=== PATIENT | male | born 1980 | race African-American/Black ===

== ENCOUNTER 2018-02-01 22:19 | Emergency (ER) | payer MEDICAID ==
[~2018-02-01] VITALS: Ht 182.9 cm; Wt 68.5 kg
[~2018-02-01 22:19] MED LIST: GABA300C10 PO; TRAM100T13 PO
[2018-02-01 22:29] VITALS: BP 117/75
[2018-02-01] MEDS ORDERED: HYDROcodone/APAP 5/325 TABLET ONE (22:49)
[2018-02-01] MEDS ORDERED: HYDROcodone/APAP 5/325 TABLET PO ONE (23:00)
== END 2018-02-01 22:53 | disposition home or self-care (01) ==
LOC: ED 22:47
DX: K02.9 Dental caries, unspecified (principal); S02.5XXA Fracture of tooth (traumatic), initial encounter for closed fracture; X58.XXXA Exposure to other specified factors, initial encounter; Y93.89 Activity, other specified; Y99.8 Other external cause status; Y92.89 Other specified places as the place of occurrence of the external cause
CPT/HCPCS: 99283

== ENCOUNTER 2018-06-27 19:17 | Emergency (ER) | payer MEDICAID ==
[~2018-06-27] VITALS: Ht 182.9 cm; Wt 77.0 kg
[2018-06-27 19:20] VITALS: BP 133/90
[2018-06-27] MEDS ORDERED: IBUPROFEN 200 MG TABLET PO ONE (20:00)
[2018-06-27] MEDS ORDERED: IBUPROFEN 600 MG TABLET ONE (20:02)
== END 2018-06-27 20:37 | disposition home or self-care (01) ==
LOC: ED 20:31
DX: K08.89 Other specified disorders of teeth and supporting structures (principal); F17.210 Nicotine dependence, cigarettes, uncomplicated
CPT/HCPCS: 99283

== ENCOUNTER 2018-07-21 08:44 | Emergency (ER) | payer MEDICAID ==
[~2018-07-21] VITALS: Ht 182.9 cm; Wt 74.1 kg
[2018-07-21 09:50] LABS: BASOPHILS % (AUTO) 0 % (0-1); EOSINOPHILS # (AUTO) 0.09 x10^3/uL (0-0.4); EOSINOPHILS % (AUTO) 1 % (1-7); LYMPHOCYTES # (AUTO) 0.71 x10^3/uL (1-3.4); LYMPHOCYTES % (AUTO) 7 % (22-44); MD NO; MEAN CORPUSCULAR HEMOGLOBIN 28.9 pg (27.5-34.5); MEAN CORPUSCULAR HGB CONC 32.8 g/dL (33.2-36.2); MEAN CORPUSCULAR VOLUME 88.1 fL (81-97); MEAN PLATELET VOLUME 8.6 fL (7.4-10.4); MONOCYTES % (AUTO) 6 % (2-9); NEUTROPHILS # (AUTO) 8.59 x10^3/uL (1.8-6.8); NEUTROPHILS % (AUTO) 86 % (42-75); PLATELET COUNT 219 x10^3/uL (130-400); RED BLOOD COUNT 5.38 x10^6/uL (4.38-5.82)
[2018-07-21 09:59] LABS: ALBUMIN 4.1 g/dL (3.4-5.0); ANION GAP 5 mmol/L (5-15); CALCIUM 8.8 mg/dL (8.5-10.1); CHLORIDE 105 mmol/L (98-107)
[2018-07-21 10:04] LABS: ALANINE AMINOTRANSFERASE 36 U/L (12-78); ALKALINE PHOSPHATASE 71 U/L (45-117); BILIRUBIN,TOTAL 0.3 mg/dL (0.2-1.0); CREATININE 1.13 mg/dL (0.7-1.3)
--- NOTE | 2018-07-21 13:41 | NUR ---
ABD PAIN, DIARRHEA AND STOOL INCONTINENCE X 2 DAYS. PT ATE SUSPICIOUS FOOD YESTERDAY. PER TRIAGE NOTE PT STATED PT HAD METH 3 DAYS AGO HOMELESS
[2018-07-21] MEDS ORDERED: BACITRACIN OINT 500U/GM, 15 GM TP ONE (14:00)
[2018-07-21] MEDS ORDERED: DICYCLOMINE 10 MG/ML, 2ML IM ONE (14:00)
[2018-07-21] MEDS ORDERED: ONDANSETRON ODT 4 MG PO ONE (14:00)
--- NOTE | 2018-07-21 14:42 | NUR ---
GIVEN MED PT CAN DC NOW GIVEN CLEAN CLOTHES FOR CHANGING
--- NOTE | 2018-07-21 15:01 | NUR ---
GIVEN TOPICAL ABX AND CHANGED DRESSING PT UP CHANGED CLOTHES WHICH I GAVE TO HIM PT UP AMBULATED TO CHECK OUT
[2018-07-21 15:02] VITALS: BP 116/74
== END 2018-07-21 15:04 | disposition home or self-care (01) ==
LOC: ED 13:30
DX: R19.7 Diarrhea, unspecified (principal); R10.84 Generalized abdominal pain; F41.1 Generalized anxiety disorder
CPT/HCPCS: 36415; 74021; 80053; 83690; 85025; 96372; 99284; J0500; Q0162

== ENCOUNTER 2018-09-16 01:45 | Emergency (ER) | payer MEDICAID ==
[~2018-09-16] VITALS: Ht 182.9 cm; Wt 72.7 kg
--- NOTE | 2018-09-16 01:48 | NUR ---
pt not in lobby x1
[2018-09-16 01:54] VITALS: BP 127/79
[2018-09-16] MEDS ORDERED: IBUPROFEN 600 MG TABLET ONE (02:11)
--- NOTE | 2018-09-16 02:16 | NUR ---
PT GIVEN SOCKS AND MEDICATED PER SEP.
[2018-09-16] MEDS ORDERED: IBUPROFEN 600 MG TABLET PO ONE (02:30)
== END 2018-09-16 03:34 | disposition home or self-care (01) ==
LOC: ED 02:23
DX: M79.671 Pain in right foot (principal); M79.672 Pain in left foot
CPT/HCPCS: 99282

== ENCOUNTER 2019-06-14 21:41 | Emergency (ER) ==
[~2019-06-14] VITALS: Ht 182.9 cm; Wt 72.7 kg
[2019-06-14 21:52] VITALS: BP 122/77
[2019-06-14] MEDS ORDERED: KETOROLAC 30 MG/1 ML ONE (22:10)
--- NOTE | 2019-06-14 22:14 | NUR ---
L hip pain x1 week, atraumatic, walking a lot. pt to xr. plan for toradol.
[2019-06-14] MEDS ORDERED: KETOROLAC 30 MG/1 ML IM ONE (22:30)
== END 2019-06-14 23:03 | disposition home or self-care (01) ==
LOC: ED 22:45
DX: M25.552 Pain in left hip (principal)
CPT/HCPCS: 73502; 96372; 99283; J1885

== ENCOUNTER 2019-08-24 02:54 | Emergency (ER) | payer MEDICAID ==
[2019-08-24] MEDS ORDERED: IBUPROFEN 600 MG TABLET ONE (03:23)
[2019-08-24] MEDS ORDERED: ACETAMINOPHEN 500 MG TABLET ONE (03:23)
[2019-08-24] MEDS ORDERED: NEOSPORIN OINT. PKT 1 PACKET ONE (03:23)
--- NOTE | 2019-08-24 04:05 | NUR ---
see paper chart
== END 2019-08-24 04:06 | disposition home or self-care (01) ==
LOC: ED 02:54
DX: M25.561 Pain in right knee (principal); F17.200 Nicotine dependence, unspecified, uncomplicated
CPT/HCPCS: 99283

== ENCOUNTER 2019-08-29 02:22 | Emergency (ER) | payer MEDICAID ==
[~2019-08-29] VITALS: Ht 182.9 cm; Wt 68.1 kg
[2019-08-29 02:47] LABS: MEAN CORPUSCULAR HEMOGLOBIN 28.2 pg (27.5-34.5); MEAN CORPUSCULAR HGB CONC 32.7 g/dL (33.2-36.2); MEAN CORPUSCULAR VOLUME 86.1 fL (81-97); MEAN PLATELET VOLUME 7.6 fL (7.4-10.4); PLATELET COUNT 261 x10^3/uL (130-400); RED BLOOD COUNT 5.28 x10^6/uL (4.38-5.82); RED CELL DISTRIBUTION WIDTH 15.3 % (9.4-14.8)
[2019-08-29 02:54] LABS: ALANINE AMINOTRANSFERASE 36 U/L (12-78); ALBUMIN 3.4 g/dL (3.4-5.0); ANION GAP 5 mmol/L (5-15); CALCIUM 8.5 mg/dL (8.5-10.1); CHLORIDE 107 mmol/L (98-107); CREATININE 1.21 mg/dL (0.7-1.3)
[2019-08-29 02:56] LABS: ALKALINE PHOSPHATASE 72 U/L (45-117); BILIRUBIN,TOTAL 0.2 mg/dL (0.2-1.0); TOTAL PROTEIN 8.1 g/dL (6.4-8.2)
[2019-08-29 03:18] LABS: BASOPHILS # (AUTO) 0.01 x10^3/uL (0-0.1); BASOPHILS % (AUTO) 0 % (0-1); EOSINOPHILS # (AUTO) 0.11 x10^3/uL (0-0.4); EOSINOPHILS % (AUTO) 2 % (1-7); LYMPHOCYTES # (AUTO) 1.37 x10^3/uL (1-3.4); LYMPHOCYTES % (AUTO) 22 % (22-44); MD SCAN; MONOCYTES # (AUTO) 0.59 x10^3/uL (0.2-0.8); MONOCYTES % (AUTO) 10 % (2-9); NEUTROPHILS # (AUTO) 4.11 x10^3/uL (1.8-6.8); NEUTROPHILS % (AUTO) 66 % (42-75)
--- NOTE | 2019-08-29 03:23 | NUR ---
Pt up to restroom for urine sample.
--- NOTE | 2019-08-29 03:31 | NUR ---
Urine sample obtained, sent to lab
[2019-08-29 03:43] LABS: CULTURE INDICATED? NO; MICROSCOPIC NOT IND
[2019-08-29 04:20] VITALS: BP 105/67
== END 2019-08-29 04:23 | disposition home or self-care (01) ==
LOC: ED 03:43
DX: K52.9 Noninfective gastroenteritis and colitis, unspecified (principal); F17.200 Nicotine dependence, unspecified, uncomplicated
CPT/HCPCS: 36415; 74021; 80053; 81003; 83690; 85025; 99284

== ENCOUNTER 2019-08-29 18:26 | Emergency (ER) | payer MEDICAID ==
[~2019-08-29] VITALS: Ht 182.9 cm; Wt 65.0 kg
--- NOTE | 2019-08-29 19:20 | NUR ---
pt to room from lobby
--- NOTE | 2019-08-29 19:25 | NUR ---
LAB AT BEDSIDE
--- NOTE | 2019-08-29 19:33 | NUR ---
PT AGITATED AND NOT WANTING TO PUT HOSPTIAL GOWN ON. PT ALSO EDUCATED ON THE NEED FOR A URINE SAMPLE, THEN PT STATED "I JUST GAVE ONE THIS MORNING, I WENT TO PEE BEFORE I GOT HERE. I DON'T HAVE TO GO NOW". PT PROVIDED WITH UA CUP AND ENCOURAGED TO ATTEMPT TO PROVIDE A URINE SAMPLE. AMBULATORY TO RESTROOM WITH STEADY GAIT.
--- NOTE | 2019-08-29 19:41 | NUR ---
URINE SAMPLE PROVIDED. LABELED AND SENT TO LAB. MONITORING EQUIPMENT APPLIED. AWAITING PHYSICIAN EVAL AT THIS TIME.
[2019-08-29 19:44] LABS: ALANINE AMINOTRANSFERASE 35 U/L (12-78); ALBUMIN 3.5 g/dL (3.4-5.0); ANION GAP 4 mmol/L (5-15); CALCIUM 8.6 mg/dL (8.5-10.1); CHLORIDE 106 mmol/L (98-107); CREATININE 1.06 mg/dL (0.7-1.3)
[2019-08-29 19:46] LABS: ALKALINE PHOSPHATASE 62 U/L (45-117); BILIRUBIN,TOTAL 0.2 mg/dL (0.2-1.0); TOTAL PROTEIN 8.2 g/dL (6.4-8.2)
[2019-08-29 19:49] LABS: BASOPHILS # (AUTO) 0.02 x10^3/uL (0-0.1); BASOPHILS % (AUTO) 0 % (0-1); EOSINOPHILS # (AUTO) 0.11 x10^3/uL (0-0.4); EOSINOPHILS % (AUTO) 2 % (1-7); LYMPHOCYTES # (AUTO) 1.21 x10^3/uL (1-3.4); LYMPHOCYTES % (AUTO) 18 % (22-44); MD NO; MEAN CORPUSCULAR HEMOGLOBIN 28.4 pg (27.5-34.5); MEAN CORPUSCULAR HGB CONC 32.6 g/dL (33.2-36.2); MEAN CORPUSCULAR VOLUME 87.2 fL (81-97); MEAN PLATELET VOLUME 7.8 fL (7.4-10.4); MONOCYTES # (AUTO) 0.57 x10^3/uL (0.2-0.8); MONOCYTES % (AUTO) 8 % (2-9); NEUTROPHILS # (AUTO) 4.87 x10^3/uL (1.8-6.8); NEUTROPHILS % (AUTO) 72 % (42-75); PLATELET COUNT 277 x10^3/uL (130-400); RED BLOOD COUNT 5.35 x10^6/uL (4.38-5.82)
[2019-08-29 19:58] LABS: MICROSCOPIC NOT IND
[2019-08-29 20:03] LABS: CULTURE INDICATED? NO
--- NOTE | 2019-08-29 20:48 | NUR ---
IV ESTABLISHED IN LEFT AC FOR CT SCAN. PT RESTING ON GURNEY WITH EYES CLOSED. PT TOLD HE WILL BE GOING FOR A CT. PT STILL HAS NOT CHANGED INTO A GOWN. PT EDUCATED ON THE NEED TO CHANGE INTO A GOWN FOR FURTHER TESTING. PT VERBALIZES UNDERSTANDING
[2019-08-29] MEDS ORDERED: OMNIPAQUE 350 MG/ML, 100ML BOTTLE ONE (21:30)
--- NOTE | 2019-08-29 21:59 | NUR ---
PT SLEEPING ON GURNEY, RESPIRATIONS EVEN AND UNLABORED. VITALS STABLE. AWAITING DISPO FROM ERP. WILL CONTINUE TO MONITOR
[2019-08-29 22:00] VITALS: BP 118/74
--- NOTE | 2019-08-29 22:23 | NUR ---
DISCUSSED DISCHARGE PAPERWORK WITH PT, PT HAS EYES CLOSED. PT ASKED IF HE WAS LISTENING AND RESPONDED WITH "YES", PT CONTINUES TO LIE ON GURNEY WITH EYES CLOSED AND DOES NOT PARTICIPATE IN DISCHARGE EDUCATION. IV DC'D AND PT ASKED TO GET DRESSED.
== END 2019-08-29 22:43 ==
LOC: ED 22:37
DX: R10.84 Generalized abdominal pain (principal); R19.7 Diarrhea, unspecified; F17.200 Nicotine dependence, unspecified, uncomplicated; R94.31 Abnormal electrocardiogram [ECG] [EKG]
CPT/HCPCS: 36415; 74177; 80053; 81003; 83690; 85025; 93005; 99285; Q9967

== ENCOUNTER 2020-03-14 17:20 | Emergency (ER) | payer MEDICAID ==
[~2020-03-14] VITALS: Ht 182.9 cm; Wt 68.3 kg
[2020-03-14 17:25] VITALS: BP 118/71
--- NOTE | 2020-03-14 18:05 | NUR ---
HEEL STIFFENER: PT TO ROOM FROM LOBBY
[2020-03-14] MEDS ORDERED: IBUPROFEN 600 MG TABLET PO ONE (18:30)
[2020-03-14] MEDS ORDERED: IBUPROFEN 600 MG TABLET ONE (18:38)
== END 2020-03-14 18:51 | disposition home or self-care (01) ==
LOC: ED 18:23
DX: M79.672 Pain in left foot (principal); B35.3 Tinea pedis; Z72.9 Problem related to lifestyle, unspecified
CPT/HCPCS: 99282

== ENCOUNTER 2020-06-02 18:38 | Emergency (ER) | payer MEDICAID ==
[~2020-06-02] VITALS: Ht 182.9 cm; Wt 72.0 kg
[2020-06-02 18:58] VITALS: BP 126/77
--- NOTE | 2020-06-02 19:50 | NUR ---
not in lobby
--- NOTE | 2020-06-02 20:11 | NUR ---
not in lobby
--- NOTE | 2020-06-02 20:41 | NUR ---
not in lobby
== END 2020-06-02 20:44 | disposition left against medical advice (07) ==
LOC: ED 18:45
DX: R52 Pain, unspecified (principal); Z53.21 Procedure and treatment not carried out due to patient leaving prior to being seen by health care provider

== ENCOUNTER 2020-06-04 22:36 | Emergency (ER) | payer MEDICAID ==
[~2020-06-04] VITALS: Ht 182.9 cm; Wt 70.8 kg
--- NOTE | 2020-06-05 00:02 | NUR ---
PT REFUSING LAB DRAW AT THIS TIME -JODI
--- NOTE | 2020-06-05 01:41 | NUR ---
PT RESTING ON GURNEY, WATCHING TV, STATES "I CAME IN FOR THESE LACERATIONS ON MY HAND". PT HAS ON 2 CM CUT NOTED ON RIGHT HAND. APPEARS TO BE SHALLOW. PT NAD, DENIES ADDITIONAL QUESTIONS OR NEEDS, BED IN LOWEST, CALL LIGHT ON LAP, WCTM. WAITING FOR ADDITIONAL ORDERS
--- NOTE | 2020-06-05 01:49 | NUR ---
PATIENT STILL REFUSING LABS.
[2020-06-05 02:52] VITALS: BP 109/59
--- NOTE | 2020-06-05 03:04 | NUR ---
Patient given discharge instructions and they have confirmed that they understand the instructions. Patient ambulatory with steady gait. NAD, DENIES ADDITIONAL QUESTIONS OR NEEDS AT THIS TIME. PROVIDED WATER BOTTLE PER REQUEST, NO PERSONAL BELONGINGS NOTED IN ROOM AT TIME OF DC.
== END 2020-06-05 03:05 | disposition home or self-care (01) ==
LOC: ED 06-05 01:31
DX: L20.84 Intrinsic (allergic) eczema (principal); R00.0 Tachycardia, unspecified; F17.210 Nicotine dependence, cigarettes, uncomplicated; Z59.0 Homelessness
CPT/HCPCS: 99283; 99406

== ENCOUNTER 2020-06-12 20:46 | Emergency (ER) | payer MEDICAID ==
[~2020-06-12] VITALS: Ht 182.9 cm; Wt 70.2 kg
[2020-06-12 20:49] VITALS: BP 127/80
[2020-06-12] MEDS ORDERED: IBUPROFEN 600 MG TABLET ONE (20:57)
[2020-06-12] MEDS ORDERED: IBUPROFEN 600 MG TABLET PO ONE (21:00)
== END 2020-06-12 21:11 | disposition home or self-care (01) ==
LOC: ED 21:00
DX: M79.671 Pain in right foot (principal); F17.210 Nicotine dependence, cigarettes, uncomplicated; F15.10 Other stimulant abuse, uncomplicated; Z72.9 Problem related to lifestyle, unspecified
CPT/HCPCS: 99282; 99406

== ENCOUNTER 2020-09-13 10:06 | Emergency (ER) | payer MEDICAID ==
[~2020-09-13] VITALS: Ht 182.9 cm; Wt 65.0 kg
--- NOTE | 2020-09-13 10:21 | NUR ---
BIB BY JESS FROM ALLEY WHERE PATIENT NOTED TO BE STUMBLING AROUND. FOUND TO HAVE LACERATION TO BACK OF HEAD HR 120'S, FSBS 124 PATIEN IN AND OUT OF CONVERSATION-RESPONDING TO EXTERNAL STIMULI? UNKNOWN LAST TDAP PLACED ON HOSPITAL LIAISON ECG OBTAINED ERP TO BEDSIDE-PLAN FOR BLOOD [id number] REPAIR
[2020-09-13] MEDS ORDERED: DIPH,PERTUSS(ACELL),TET VAC/PF 0.5 ML IM-VACC ONE ×2 (10:30→10:32)
[2020-09-13] MEDS ORDERED: LIDOCAINE-MPF 1%, 5ML INFIL ONE (10:30)
[2020-09-13] MEDS ORDERED: LIDOCAINE-MPF 1%, 5ML ONE (10:31)
--- NOTE | 2020-09-13 10:44 | NUR ---
LAB AT BEDSIDE TDAP UPDATED PER EMAR WOUND IRRIGATED PROVIDED WITH FOOD/WATER
[2020-09-13 10:52] LABS: BASOPHILS % (AUTO) 0 % (0-1); EOSINOPHILS % (AUTO) 0 % (1-7); LYMPHOCYTES % (AUTO) 9 % (22-44); MD NO; MEAN CORPUSCULAR HEMOGLOBIN 28.6 pg (27.5-34.5); MEAN CORPUSCULAR HGB CONC 33.7 g/dL (33.2-36.2); MEAN PLATELET VOLUME 8.5 fL (7.4-10.4); MONOCYTES % (AUTO) 9 % (2-9); NEUTROPHILS % (AUTO) 82 % (42-75); PLATELET COUNT 193 x10^3/uL (130-400); RED BLOOD COUNT 4.61 x10^6/uL (4.38-5.82); RED CELL DISTRIBUTION WIDTH 14.4 % (9.4-14.8)
[2020-09-13 11:03] LABS: ALBUMIN 4.6 g/dL (3.4-5.0); ANION GAP 9 mmol/L (5-15); CALCIUM 9.7 mg/dL (8.5-10.1); CHLORIDE 107 mmol/L (98-107); CREATININE 1.47 mg/dL (0.7-1.3)
--- NOTE | 2020-09-13 11:09 | NUR ---
6 URBAN PLACED TO 2 SEPERATE LACERATIONS (4 IN ONE LAC, 2 IN THE OTHER LAC) BY PROVIDER
[2020-09-13 11:28] VITALS: BP 132/76
--- NOTE | 2020-09-13 11:29 | NUR ---
report recived. pt laying in bed vss. suni done at bedside.
--- NOTE | 2020-09-13 12:16 | NUR ---
PT WALKED OUT SELF WITH STEADY GAIT. DISCUESSED URBAN, COMMUNITY RESOURCES, AND S&S OF INFECTION.
== END 2020-09-13 12:27 | disposition home or self-care (01) ==
LOC: ED 11:44
DX: S01.01XA Laceration without foreign body of scalp, initial encounter (principal); R00.0 Tachycardia, unspecified; I49.3 Ventricular premature depolarization; W01.0XXA Fall on same level from slipping, tripping and stumbling without subsequent striking against object, initial encounter; Y93.89 Activity, other specified; Y92.488 Other paved roadways as the place of occurrence of the external cause; Y99.8 Other external cause status
CPT/HCPCS: 12002; 36415; 80048; 80320; 82040; 85025; 90471; 90715; 93005; 99284; G0480

== ENCOUNTER 2020-09-14 02:18 | Emergency (ER) | payer MEDICAID ==
[~2020-09-14] VITALS: Ht 182.9 cm; Wt 69.6 kg
[2020-09-14 02:19] VITALS: BP 138/90
[2020-09-14] MEDS ORDERED: IBUPROFEN 800 MG TABLET PO ONE (03:00)
[2020-09-14] MEDS ORDERED: IBUPROFEN 200 MG TABLET ONE (03:04)
--- NOTE | 2020-09-14 03:17 | NUR ---
Pt to ER for motrin, and gauze for head. Pt had fall x 1 day ago and had suni placed. Head wound intact, no s/s of infection, no bleeding. Pt A&O, neuro intact. Pt medicated per order. Given water, sprite, crackers and gauze for head. Pt dc'd with written and verabal instructions and states understanding. Pt ambulatory out of ed without difficulty.
== END 2020-09-14 03:20 | disposition home or self-care (01) ==
LOC: ED 03:01
DX: G89.11 Acute pain due to trauma (principal); R51.9 Headache, unspecified; F17.210 Nicotine dependence, cigarettes, uncomplicated; Z72.9 Problem related to lifestyle, unspecified
CPT/HCPCS: 99282; 99406

== ENCOUNTER 2021-01-01 00:05 | Emergency (ER) | payer MEDICAID ==
[~2021-01-01] VITALS: Ht 182.9 cm; Wt 77.3 kg
--- NOTE | 2021-01-01 03:24 | NUR ---
pt to room from lobby
[2021-01-01] MEDS ORDERED: ACETAMINOPHEN 325 MG TABLET PO ONE (04:00)
[2021-01-01] MEDS ORDERED: IBUPROFEN 600 MG TABLET PO ONE (04:00)
[2021-01-01] MEDS ORDERED: IBUPROFEN 600 MG TABLET ONE (04:36)
[2021-01-01] MEDS ORDERED: ACETAMINOPHEN 325 MG TABLET ONE (04:36)
--- NOTE | 2021-01-01 04:40 | NUR ---
Patient is resting comfortably in bed. Bed in lowest, rails engaged, call light on lap. Vital Signs within normal limits. WCTM.
[2021-01-01 06:24] VITALS: BP 106/63
--- NOTE | 2021-01-01 06:26 | NUR ---
Patient/Caregiver given discharge instructions and they have confirmed that they understand the instructions. Patient ambulatory with steady gait. NAD, all questions answered appropriately, denies additional needs at this time. No personal belongings left in room after discharge. pt given non slip socks. pt educated on MTM for transport to disposition of dc.
== END 2021-01-01 06:27 | disposition home or self-care (01) ==
LOC: ED 06:21
DX: M79.672 Pain in left foot (principal); M79.671 Pain in right foot; Z72.9 Problem related to lifestyle, unspecified; F17.210 Nicotine dependence, cigarettes, uncomplicated
CPT/HCPCS: 99283; 99406